=== PATIENT | male | born 1990 | race African-American/Black ===

== ENCOUNTER 2019-04-07 08:12 | Day surgery (SDC) | payer OTHER ==
[2019-04-04 15:59] VITALS: BMI 25.9
[2019-04-07] MEDS ORDERED: SUCCINYLCHOLINE CHLORIDE 200 MG/10 ML SYRINGE ONE (10:21)
[2019-04-07] MEDS ORDERED: PROPOFOL 20 ML ONE ×4 (10:21)
[2019-04-07] MEDS ORDERED: MIDAZOLAM HCL 2 MG/2 ML SINGLE DOSE VIAL ONE (10:21)
[2019-04-07] MEDS ORDERED: LIDOCAINE HCL/PF 2% SDV 5ML VIAL ONE (10:27)
[2019-04-07] MEDS ORDERED: ACETAMINOPHEN 325 MG TABLET (FP) PO PRN (10:34)
[2019-04-07] MEDS ORDERED: PHENAZOPYRIDINE HCL 100 MG TABLET (FP) PO ONE (10:34)
[2019-04-07] MEDS ORDERED: ceFAZolin 2 GRAM PREMIX BAG IVPB ONE (10:40)
[2019-04-07] MEDS ORDERED: oxyCODONE HCL 5 MG TABLET PO PRN ×2 (11:30)
[2019-04-07] MEDS ORDERED: ONDANSETRON 4 MG/2 ML VIAL IVPUSH PRN (11:30)
[2019-04-07] MEDS ORDERED: LACTATED RINGERS SOLUTION 1,000 ML IV SCH (11:30)
[2019-04-07 14:11] VITALS: TEMP 98
[2019-04-07 14:26] VITALS: BP 120/70; PULSE 66
--- NOTE | 2019-04-07 17:53 | HP ---
DATE OF ADMISSION: 04/07/2019 HISTORY: Patient is a 28-year-old male admitted for a cystoscopy because of persistent microscopic hematuria. The patient denies any history of nephrolithiasis. He denies any trauma. Had a renal ultrasound, which was read as normal. Patient had multiple urinalyses, which revealed positive blood, negative nitrites, and negative bacteria. He does have history of dyslipidemia. Also has a history of genital herpes. He is on Valtrex prophylactically. He denies any allergies. Denies any ethanolism or TB. PHYSICAL EXAMINATION: General: Reveals a well-developed, adult male no apparent distress. Abdomen: Soft. No CVA tenderness. Genitourinary: Genitalia are atraumatic. Testes are normal in size and consistency. Meatus is adequate. Prostate is 1+, flat, and nontender. Extremities: Reveal full range of motion with no cyanosis, clubbing, or edema. IMPRESSION: At present is persistent microscopic hematoma. PLAN: A urine cytology was sent, and this came back negative. Patient will undergo a cystoscopy. Procedure has been explained to the patient, and he agrees. Una [id number]
--- NOTE | 2019-04-08 16:41 | PATH ---
Cytology Non-Gynecological Report Patient Name: JUAN CASTILLO [facility]. Rec. #: [id number] /Age/Gender: 1990 (Age: 28) / M Account: [id number] Location: [facility] Taken: 04/07/2019 Received: 04/07/2019 Reported: 04/08/2019 Physicians: Tiffanie Shah M.D. Specimen(s) Received BLADDER URINE Clinical History Hematuria Final Diagnosis BLADDER URINE FOR CYTOLOGY: SATISFACTORY FOR EVALUATION. NEGATIVE FOR HIGH GRADE UROTHELIAL CARCINOMA. SCATTERED UROTHELIAL CELLS AND MANY RED BLOOD CELLS PRESENT. Electronically Signed Patricia Farrell M.D. Gross Description Approximately 40 cc of cloudy yellow fluid received fresh. One cytofunnel prepared and Pap stained.
--- NOTE | 2019-04-08 18:44 | PATH ---
Surgical Pathology Report Patient Name: JUAN CASTILLO [facility]. Rec. #: [id number] /Age/Gender: 1990 (Age: 28) / M Account: [id number] Location: [facility] Taken: 04/07/2019 Received: 04/07/2019 Reported: 04/08/2019 Physicians: Tiffanie Shah M.D. Specimen(s) Received BLADDER BIOPSY Clinical History Hematuria Final Diagnosis BLADDER BIOPSY: BENIGN UROTHELIAL MUCOSA WITH CHRONIC INFLAMMATION AND FOCAL HEMORRHAGE. ADJACENT BENIGN PROSTATIC GLANDS PRESENT. NEGATIVE FOR MALIGNANCY. Electronically Signed Nataliya Arevalo M.D. Gross Description Received in formalin labeled "bladder biopsy," are 3 harding soft tissue fragments ranging from 0.2-0.4 cm in greatest dimension. The specimens are submitted in toto in one cassette. /04/07/2019 saudi04/07/2019
--- NOTE | 2019-04-18 14:56 | OP ---
DATE OF OPERATION: 04/07/2019 PREOPERATIVE DIAGNOSIS: Persistent microscopic hematuria and micturition disorder. OPERATIVE PROCEDURE: Cystourethroscopy and optical internal urethrotomy. ANESTHESIA: General. DESCRIPTION OF PROCEDURE: Under above-stated anesthesia, patient was prepped and draped in the usual sterile manner. He was placed in the dorsal lithotomy position. Cystoscopy introduced under direct vision revealed a normal anterior urethra. 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 A urethrotome was inserted and the stricture was excised at the 12 o'clock position. No extravasation or bleeding was noted. Prostatic urethra appeared to be inflamed. Bladder was entered and urine was collected for C and S and cytology. The bladder revealed a grade 2 trabeculation. No overt lesions or calculi were seen. Ureteral orifices were within normal limits with efflux of clear urine. Dome and lateral jaquez were clear. The bladder was emptied. The scope was removed. An 18-[place] Car was left in place. The patient tolerated the procedure well. He returned to the recovery room in good condition. Una [id number]
== END 2019-04-07 14:15 | disposition home or self-care (01) ==
LOC: JASU-SURG 08:12
PROVIDERS: ATTEND Urology
PROC: 0TND8ZZ Release Urethra, Via Natural or Artificial Opening Endoscopic (ICD-10-PCS; principal; 2019-04-07 10:00)
DX: N35.912 Unspecified bulbous urethral stricture, male (principal); N32.89 Other specified disorders of bladder
CPT/HCPCS: 87086; 88108; 88305-TC; 94760

== ENCOUNTER 2019-04-13 12:21 | Emergency (ER) | payer OTHER ==
[2019-04-13 12:37] VITALS: TEMP 99.5; BMI 25.9
--- NOTE | 2019-04-13 14:43 | PDOC ---
History of Present Illness - General Chief Complaint: Urinary Problem Stated Complaint: ABDOMINAL PAIN Time Seen by Provider: 04/13/19 12:58 History Source: Patient Exam Limitations: No Limitations Past History - Travel Traveled outside of the country in the last 30 days: No Close contact w/someone who was outside of country & ill: No - Past Medical History Allergies/Adverse Reactions: Allergies Allergy/AdvReac Type Severity Reaction Status Date / Time No Known Allergies Allergy Verified 04/07/19 09:00 Home Medications: Ambulatory Orders Cephalexin [Keflex] 500 mg PO TID 04/13/19 Phenazopyridine HCl [Pyridium] 100 mg PO TID #6 tablet 04/13/19 Anemia: No Asthma: No Cancer: No Cardiac Disorders: No CVA: No COPD: No CHF: No Dementia: No Diabetes: No GI Disorders: No Disorders: No HTN: No Hypercholesterolemia: No Liver Disease: No Seizures: No Thyroid Disease: No - Surgical History Orthopedic Surgery: Yes (shoulder) - Psycho Social/Smoking Cessation Hx Smoking History: Never smoked Hx Alcohol Use: No Drug/Substance Use Hx: No Substance Use Type: Marijuana Review of Systems - Review of Systems Able to Perform ROS?: Yes Comments:: 04/13/19 16:05 CONSTITUTIONAL: Absent: fever, chills, diaphoresis, generalized weakness, malaise, loss of appetite HEENT: Absent: rhinorrhea, nasal congestion, throat pain, throat swelling, difficulty swallowing, mouth swelling, ear pain, eye pain, visual Changes CARDIOVASCULAR: Absent: chest pain, loss of consciousness, palpitations, irregular heart rate, peripheral edema RESPIRATORY: Absent: cough, shortness of breath, dyspnea with exertion, orthopnea, wheezing, stridor, hemoptysis GASTROINTESTINAL: Absent: abdominal pain, abdominal distension, nausea, vomiting, diarrhea, constipation, melena, hematochezia GENITOURINARY: Present: Dysuria. Absent: dysuria, frequency, urgency, hesitancy, hematuria, flank pain, genital pain MUSCULOSKELETAL: Absent: myalgia, arthralgia, joint swelling SKIN: Absent: rash, itching, pallor HEMATOLOGIC/IMMUNOLOGIC: Absent: easy bleeding, easy bruising, lymphadenopathy, frequent infections ENDOCRINE: Absent: unexplained weight gain, unexplained weight loss, heat intolerance, cold intolerance NEUROLOGIC: Absent: headache, focal weakness or paresthesias, dizziness, unsteady gait, seizure, mental status changes, bladder or bowel incontinence PSYCHIATRIC: Absent: anxiety, depression, suicidal or homicidal ideation, hallucinations. Is the patient limited Lithuanian proficient: No *Physical Exam - Vital Signs Last Vital Signs Temp Pulse Resp BP Pulse Ox 99.5 F 99 H 20 127/73 99 04/13/19 12:27 04/13/19 12:27 04/13/19 12:27 04/13/19 12:27 04/13/19 12:27 - Physical Exam Comments: 04/13/19 16:05 GENERAL: Well developed, well nourished. Awake and alert. No acute distress. HEENT: Normocephalic, atraumatic. PERRLA, EOMI. No conjunctival pallor. Sclera are non- icteric. Moist mucous membranes. Oropharynx is clear. NECK: Supple. Full ROM. No JVD. Carotid pulses 2+ and symmetric, without bruits. No thyromegaly. No lymphadenopathy. CARDIOVASCULAR: Regular rate and rhythm. No murmurs, rubs, or gallops. Distal pulses are 2+ and symmetric. PULMONARY: No evidence of respiratory distress. Lungs clear to auscultation bilaterally. No wheezing, rales or rhonchi. ABDOMINAL: Soft. Non-tender. Non-distended. No rebound or guarding. No organomegaly. Normoactive bowel sounds. MUSCULOSKELETAL Normal range of motion at all joints. No bony deformities or tenderness. No CVA tenderness. EXTREMITIES: No cyanosis. No clubbing. No edema. No calf tenderness. SKIN: Warm and dry. Normal capillary refill. No rashes. No jaundice. NEUROLOGICAL: Alert, awake, appropriate. Cranial nerves 2-12 intact. No deficits to light touch and temperature in face, upper extremities and lower extremities. No motor deficits in the in face, upper extremities and lower extremities. Normoreflexic in the upper and lower extremities. Normal speech. Toes are down- going bilaterally. Gait is normal without ataxia. PSYCHIATRIC: Cooperative. Good eye contact. Appropriate mood and affect. Medical Decision Making - Medical Decision Making 04/13/19 16:05 The patient is a 28-year-old male with past medical history of hematuria, status post cystoscopy on 04/07/2019, presents to the ER today for dysuria and burning at the tip of his penis. He states that his dysuria had gotten better since having the Car catheter removed status post cystoscopy however the symptoms returned today so he became concerned. He states that he has a burning feeling at the tip of his penis. He notes that he did see some blood in his semen yesterday. He is concerned he might have an infection. Patient is on Keflex currently as prescribed by his urologist. He also notes some pressure when he urinates. He also notes to frequency. Denies fevers, chills, vomiting, back pain. Urology: Dr. Shah A/P: Dysuria On exam patient with some mild suprapubic discomfort. No tayler blood noted in the urine. No clots noted Patient is compliant with taking Keflex with pill count. Will order Pyridium Suspect this is a bladder spasm status post procedure; given that the symptoms have improved over the week Patient pending urine results before discharge Signout given to ARMIN Meraz 04/13/19 16:09 Discharge - Discharge Information Problems reviewed: Yes Clinical Impression/Diagnosis: Dysuria Condition: Stable Disposition: HOME - Additional Discharge Information Prescriptions: Phenazopyridine HCl [Pyridium] 100 mg PO TID #6 tablet - Follow up/Referral Referrals: Олег Kilgore [Primary Care Provider] - - Patient Discharge Instructions Patient Printed Discharge Instructions: DI for Dysuria -- Adult Additional Instructions: Your Discharge Instructions: You must call primary care physician within 24 hours to arrange follow-up. Return to the Emergency Department with any new, persistent or worsening symptoms, for fever, chills, SOB, dizziness or any other concerning changes that may occur. Your urine results showed blood in the urine, no bacteria cells. However, a gonorrhea and Chlamydia tests were sent bladder just as a precautionary measure and will be resulted in 2 days. - Post Discharge Activity
[2019-04-13] MEDS ORDERED: PHENAZOPYRIDINE HCL 100 MG TABLET (FP) PO ONE (14:52)
[2019-04-13] MEDS ORDERED: PHENAZOPYRIDINE HCL 100 MG TABLET (FP) ONE (15:05)
[2019-04-13 16:23] LABS: EPI CELLS 0.3 /HPF (0-5/HPF); HYALINE CASTS 0 /lpf (0-8); PH,URINE 6.5 (5.0-8.0); URINE APPEARANCE CLEAR; URINE BACTERIA 0.7 /hpf (NEGATIVE); URINE BILIRUBIN NEGATIVE (NEGATIVE); URINE COLOR YELLOW; URINE GLUCOSE (UA) NEGATIVE (NEGATIVE); URINE KETONE NEGATIVE (NEGATIVE); URINE LEUK ESTERASE NEGATIVE (NEGATIVE); URINE NITRITE NEGATIVE (NEGATIVE); URINE PROTEIN NEGATIVE (NEGATIVE); URINE RBC 16 /hpf (0-4); URINE UROBILINOGEN 0.2 mg/dL (0.2-1.0); URINE WBC 3 /hpf (0-5)
--- NOTE | 2019-04-13 17:13 | PDOC ---
*Physical Exam - Vital Signs Last Vital Signs Temp Pulse Resp BP Pulse Ox 99.5 F 99 H 20 127/73 99 04/13/19 12:27 04/13/19 12:27 04/13/19 12:27 04/13/19 12:27 04/13/19 12:27 ED Treatment Course - ADDITIONAL ORDERS Additional order review: Laboratory Results 04/13/19 14:00 Urine Color Yellow Urine Appearance Clear Urine pH 6.5 Ur Specific [place] 1.025 Urine Protein Negative Urine Glucose (UA) Negative Urine Ketones Negative Urine Blood 1+ H Urine Nitrite Negative Urine Bilirubin Negative Urine Urobilinogen 0.2 Ur Leukocyte Esterase Negative Urine WBC (Auto) 3 Urine RBC (Auto) 16 Urine Casts (Auto) 0 U Epithel Cells (Auto) 0.3 Urine Bacteria (Auto) 0.7 - Medications Given in the ED: ED Medications Discontinued Medications Generic Name Dose Route Start Last Admin Trade Name Freq PRN Reason Stop Dose Admin Phenazopyridine HCl 100 mg 04/13/19 14:52 04/13/19 15:16 Pyridium - PO 04/13/19 14:53 100 mg ONCE ONE Administration Medical Decision Making - Medical Decision Making 04/13/19 17:05 Endorsed to me to check urine and disposition. patient feels improved I discussed the physical exam findings, ancillary test results and final diagnoses with the patient. I answered all of the patient's questions. The patient was satisfied with the care received and felt comfortable with the discharge plan and treatment plan. The Patient agrees to follow up with the primary care physician within 24-72 hours. Discharge - Discharge Information Problems reviewed: Yes Clinical Impression/Diagnosis: Dysuria Condition: Stable Disposition: HOME - Follow up/Referral Referrals: Олег Kilgore [Primary Care Provider] - - Patient Discharge Instructions Patient Printed Discharge Instructions: DI for Dysuria -- Adult Additional Instructions: Your Discharge Instructions: You must call primary care physician within 24 hours to arrange follow-up. Return to the Emergency Department with any new, persistent or worsening symptoms, for fever, chills, SOB, dizziness or any other concerning changes that may occur. Your urine results showed blood in the urine, no bacteria cells. However, a gonorrhea and Chlamydia tests were sent bladder just as a precautionary measure and will be resulted in 2 days. - Post Discharge Activity
[2019-04-13 17:18] VITALS: BP 147/79; PULSE 59
== END 2019-04-13 17:20 | disposition home or self-care (01) ==
LOC: JER 12:21
DX: R30.0 Dysuria (principal); Z98.890 Other specified postprocedural states
CPT/HCPCS: 36415; 81003; 87086; 87491; 87591; 99282-25

== ENCOUNTER 2020-12-25 11:59 | Emergency (ER) | payer OTHER ==
[2020-12-25 12:06] VITALS: BP 107/68; PULSE 74; TEMP 98.5; BMI 23.7
== END 2020-12-25 15:58 | disposition home or self-care (01) ==
LOC: JERFT 11:59
PROC: 2W3CX1Z Immobilization of Right Lower Arm using Splint (ICD-10-PCS; principal; 2020-12-25)
DX: S62.302A Unspecified fracture of third metacarpal bone, right hand, initial encounter for closed fracture (principal)
CPT/HCPCS: 73130-TC-RT-FY; 99283-25

== ENCOUNTER 2021-08-13 22:23 | Emergency (ER) | payer OTHER ==
[2021-08-13 22:31] VITALS: BMI 23.7
[2021-08-13] MEDS ORDERED: morphine CARPU-JECT 4 MG/1 ML DISP.SYRIN IVPUSH ONE (23:10)
[2021-08-13] MEDS ORDERED: morphine SULFATE 4 MG/ML VIAL ONE (23:45)
[2021-08-13 23:49] LABS: BASO % 0.6 % (0-2.0); EOS % 0.4 % (0-4.5); HEMATOCRIT 41.6 % (35.4-49); HEMOGLOBIN 14.5 GM/dL (11.7-16.9); LYMPH % 29.4 % (8-40); MCH 30.3 pg (25.7-33.7); MCHC 34.9 g/dl (32.0-35.9); MEAN PLT VOLUME 7.1 fl (7.5-11.1); MONO % 9.7 % (3.8-10.2); NEUT % 59.9 % (42.8-82.8); PLATELET COUNT 254 10^3/uL (134-434); RBC 4.78 M/mm3 (4.00-5.60); RDW 13.4 % (11.9-15.9)
[2021-08-14 00:27] LABS: CALCIUM 9.3 mg/dL (8.5-10.1)
[2021-08-14 00:28] LABS: ALBUMIN 4.3 g/dl (3.4-5.0); BLOOD UREA NITROGEN 18.1 mg/dL (7-18)
[2021-08-14 00:31] LABS: CREATININE 1.2 mg/dL (0.55-1.3)
[2021-08-14 00:32] LABS: TOT PROT 7.3 g/dl (6.4-8.2)
[2021-08-14 00:33] LABS: BILIRUBIN,TOTAL 1.1 mg/dL (0.2-1)
[2021-08-14] MEDS ORDERED: SODIUM CHLORIDE 0.9% 500 ML INFUS.BAG IV ONE (00:39)
[2021-08-14 01:31] VITALS: TEMP 98.4
[2021-08-14] MEDS ORDERED: morphine CARPU-JECT 4 MG/1 ML DISP.SYRIN IVPUSH ONE (04:01)
[2021-08-14] MEDS ORDERED: morphine SULFATE 4 MG/ML VIAL ONE (04:07)
[2021-08-14 04:32] VITALS: BP 110/70; PULSE 86
== END 2021-08-14 05:44 | disposition short-term general hospital (02) ==
LOC: JER 22:23
PROC: 3E033NZ Introduction of Analgesics, Hypnotics, Sedatives into Peripheral Vein, Percutaneous Approach (ICD-10-PCS; principal; 2021-08-13)
PROC: 3E033NZ Introduction of Analgesics, Hypnotics, Sedatives into Peripheral Vein, Percutaneous Approach (ICD-10-PCS; 2021-08-13)
DX: S22.42XA Multiple fractures of ribs, left side, initial encounter for closed fracture (principal); S27.321A Contusion of lung, unilateral, initial encounter; Y04.0XXA Assault by unarmed brawl or fight, initial encounter
CPT/HCPCS: 36415; 70450-TC; 70486-TC; 71260-TC; 72125-TC; 74177-TC; 76604; 76705-TC; 80053; 85025; 93308; 99285-25; C9803; U0003; U0005